=== PATIENT | female | born 1955 | race Caucasian/White ===

== ENCOUNTER 2018-01-07 10:49 | Emergency (ER) | payer OTHER ==
--- NOTE | 2018-01-07 11:13 | ED ---
HPI Chest Pain - HPI Summary HPI Summary: This patient is a 62 year old F presenting to [facility] with a chief complaint of sudden mid chest pain that radiated to right shoulder and neck, and jaw beginning last night around 22:00 while dancing. Pain at the time was 5/10 in severity. She reports current chest pressure and tightness also rated as a 5/10 in severity. She reports mild SOB this morning and "just doesn't feel right". Denies any nausea or lower extremity swelling and pain. She called her PCP this morning who instructed her to come to the ED. PMHx of TIAs, DM, and cardiac stents. Patient is currently on blood thinners including ASA; 81mg of ASA taken this morning. 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 - History of Current Complaint Chief Complaint: EDChestPainROMI Time Seen by Provider: 01/07/18 11:00 Hx Obtained From: Patient Onset/Duration: Started Hours Ago Time of Onset: 22:00 Timing: Constant Initial Severity: Severe Current Severity: Moderate Pain Intensity: 5 Pain Scale Used: 0-10 Numeric Chest Pain Location: Mid Sternal Chest Pain Radiates: Yes Chest Pain Radiates To:: Shoulder, Jaw, Neck Character: Pressure/Squeezing, Tightness Aggravating Factor(s): Nothing Alleviating Factor(s): Nothing Associated Signs and Symptoms: Positive: Chest Pain, Shortness of Breath. Negative: Calf Pain/Swelling - Allergy/Home Medications Allergies/Adverse Reactions: Allergies Allergy/AdvReac Type Severity Reaction Status Date / Time pepper (genus Capsicum) Allergy Hives Verified 01/07/18 13:19 Home Medications: Home Medications Bifidobacterium Infantis [Align] 4 mg PO DAILY 01/07/18 [History Confirmed 01/07] Glipizid/Metformin 2.5/500(NF) [Metaglip 2.5/500(NF)] 2 tab PO BID 01/07/18 [ History Confirmed 01/07/18] PMH/Surg Hx/FS Hx/Imm Hx Endocrine/Hematology History: Reports: Hx Diabetes Cardiovascular History: Reports: Hx Angina, Hx Coronary Artery Disease, Hx Hypercholesterolemia Denies: Hx Hypertension, Hx Pacemaker/ICD GI History: Reports: Other GI Disorders - ESOPHAGEAL STENT History: Reports: Other Problems/Disorders - UTI's Denies: Hx Renal Disease Sensory History: Reports: Hx Contacts or Glasses Denies: Hx Hearing Aid Opthamlomology History: Reports: Hx Contacts or Glasses Neurological History: Reports: Hx Transient Ischemic Attacks (TIA) Psychiatric History: Reports: Hx Depression Denies: Hx Panic Disorder - Cancer History Hx Chemotherapy: No Hx Radiation Therapy: No - Surgical History Surgery Procedure, Year, and Place: tonsilectomy 1958, tubal [id number], D+C, arthroscopic 1995 & 2001: stents to heart 07/20 Hx Anesthesia Reactions: No Infectious Disease History: No Infectious Disease History: Denies: Traveled Outside the [place] in Last 30 Days - Family History Known Family History: Positive: Hypertension - Social History Alcohol Use: Rare Substance Use Type: Reports: None Smoking Status (MU): Former Smoker Type: Cigarettes Length of Time of Smoking/Using Tobacco: 45 Have You Smoked in the Last Year: Yes Review of Systems Positive: Chest Pain Positive: Shortness Of Breath Negative: Nausea Negative: Myalgia, Edema All Other Systems Reviewed And Are Negative: Yes Physical Exam - Summary Physical Exam Summary: General: well-appearing, no pain distress Skin: warm, color reflects adequate perfusion, dry Head: normal Eyes: EOMI, KARINA ENT: normal Neck: supple, nontender Respiratory: CTA, breath sounds present Cardiovascular: RRR Abdomen: soft, nontender Bowel: present Musculoskeletal: normal, strength/ROM intact Neurological: sensory/motor intact, A&O x3 Psychological: affect/mood appropriate Triage Information Reviewed: Yes Vital Signs On Initial Exam: Initial Vitals Temp Pulse Resp BP Pulse Ox 97.6 F 68 16 184/63 98 01/07/18 10:52 01/07/18 10:52 01/07/18 10:52 01/07/18 10:52 01/07/18 10:52 Vital Signs Reviewed: Yes Diagnostics - Vital Signs Vital Signs Temp Pulse Resp BP Pulse Ox 01/07/18 10:52 97.6 F 68 16 184/63 98 - Laboratory Result Diagrams: 01/07/18 11:32 01/07/18 11:32 Lab Statement: Any lab studies that have been ordered have been reviewed, and results considered in the medical decision making process. - Radiology CXR Radiology Interpretation Completed By: Radiologist - Cardiomegaly without evidence for pulmonary edema. ED Physician has reviewed this report. - EKG 1119 Cardiac Rate: NL - 63 BPM EKG Rhythm: Sinus Rhythm Ectopy: None EKG Interpretation: flipped T in III Re-Evaluation - Re-Evaluation First Re-Evaluation Time: 12:22 Change: Improved Comment: Informed patient of results. Discussed admission. Patients chest pressure improved with Nitro. Chest Pain Course/Dx - Course Course Of Treatment: DISCUSSED RESULTS WITH THE PATIENT AND FAMILY. HOSPITALIST CONSULTED FOR ADMISSION. THE PATIENT DECLINED ADMISSION. I DISCUSSED THE RISKS OF NO BEING ADMITTED FOR CHEST PAIN; THE PATIENT SIGNED AMA FORM. WE DISCUSSED F/U WITH PMD AND RETURNING TO ED WITH ANY WORSENING OF HER CONDITION OR QUESTIONS OR CONCERNS. - Diagnoses Provider Diagnoses: Chest pain - Provider Notifications Discussed Care Of Patient With: Mara Lopez - hospitalist Time Discussed With Above Provider: 12:13 Instructed by Provider To: Admit As Inpatient Discharge - Sign-Out/Discharge Documenting (check all that apply): Patient Departure - Discharge Plan Condition: Guarded Disposition: AGAINST MEDICAL ADVICE Patient Education Materials: Chest Pain (ED) Referrals: Gus Van MD [Primary Care Provider] - Darby Blanco MD [Medical Doctor] - Additional Instructions: FOLLOW UP WITH YOUR PRIMARY CARE DOCTOR AND SUPERVISOR INTERNATIONAL RESERVATIONS. RETURN TO THE EMERGENCY DEPARTMENT FOR ANY WORSENING OF YOUR CONDITION OR QUESTIONS OR CONCERNS. - Billing Disposition and Condition Condition: GUARDED Disposition: Against Medical Advice - Attestation Statements Document Initiated by Arturoibe: Yes Documenting Scribe: Stacey Linares Provider For Whom Angiee is Documenting (Include Credential): Kalyan Bernardo MD Scribe Attestation: IStacey, scribed for Kalyan Bernardo MD on 01/07/18 at 1843. Scribe Documentation Reviewed: Yes Provider Attestation: The documentation as recorded by the Stacey hurt accurately reflects the service I personally performed and the decisions made by me, Kalyan Bernardo MD
[2018-01-07] MEDS ORDERED: Nitroglycerin TAB 0.4 MG* 0.4 MG TAB SL ONE ×2 (11:14→12:18)
[2018-01-07] MEDS ORDERED: Aspirin 81 mg CHEW TAB* 81 MG TAB.CHEW PO ONE (11:14)
[2018-01-07] MEDS ORDERED: NS 0.9% 1000 ML* 1,000 ML IV SCH (11:15)
[2018-01-07 11:39] LABS: ABS Basophils 0.1 10^3/ul (0-0.2); ABS Eosinophils 0 10^3/ul (0-0.6); ABS Lymphocytes 2.3 10^3/ul (1.0-4.8); ABS Monocytes 0.4 10^3/ul (0-0.8); ABS Neutrophils 4.8 10^3/ul (1.5-7.7); ABS Nucleated RBC 0 10^3/ul; Eosinophil % 0.1 % (0-6); Hematocrit 40 % (35-47); Hemoglobin 13.4 g/dl (12.0-16.0); Lymphocyte % 30.3 % (25-47); Mean Corpuscular HGB Conc 33 g/dl (31-36); Mean Corpuscular Hemoglobin 28 pg (27-31); Mean Corpuscular Volume 84 fL (80-97); Mean Platelet Volume 8.5 um3 (7.4-10.4); Nucleated Red Blood Cells % 0; Platelet Count 222 10^3/ul (150-450); Red Blood Count 4.81 10^6/ul (4.00-5.40); Red Cell Distribution Width 14 % (10.5-15); White Blood Count 7.6 10^3/ul (3.5-10.8)
[2018-01-07 11:48] LABS: INR 0.94 (0.77-1.02)
--- NOTE | 2018-01-07 11:51 | RAD ---
Indication: Chest pressure. Coronary artery disease with prior stent. Comparison: January 08, 2014 Technique: Upright AP 1130 hours Report: No focal pulmonary lesion, compelling alveolar consolidation, pleural effusion, pneumothorax. Cardiomegaly. Unremarkable central pulmonary vasculature and mediastinal contours. IMPRESSION: #. Cardiomegaly without evidence for pulmonary edema.
[2018-01-07 11:58] LABS: EGFR Non-African American 79.5 (>60)
[2018-01-07] MEDS ORDERED: Magnesium Sulfate 2 GM IV* 2 GM/50 ML BAG IVPB ONE (12:16)
[2018-01-07] MEDS: NS 0.9% 1000 ML* 2,000 ML IV ONE (12:28)
[2018-01-07 13:54] VITALS: BP 126/92
[2018-01-07] MEDS ORDERED: Heparin VIAL(*) 5000 UNITS/ML VIAL (FIVE THOUSAND) SUBCUT SCH (14:00)
--- NOTE | 2018-01-07 15:01 | PN ---
Hospitalist Progress Note Date of Service: 01/07/18 Asked by ED provider to eval Patient for possible admission for chest pain rule out ACS. Upon entering room to see patient, Pt states that she doesn't want to stay and would like to leave. She states that her chest pain has resolved and she has an appointment with cardiology later this month. ED provider notified of Pt's request to leave AMA at this time.
== END 2018-01-07 14:16 | disposition left against medical advice (07) ==
LOC: ED 10:49 → MEDTELE 13:13 → UNDOADMOB 13:13 → ED 14:16
DX: R07.89 Other chest pain (principal); I25.10 Atherosclerotic heart disease of native coronary artery without angina pectoris; E11.9 Type 2 diabetes mellitus without complications; Z53.21 Procedure and treatment not carried out due to patient leaving prior to being seen by health care provider; Z95.5 Presence of coronary angioplasty implant and graft; Z87.891 Personal history of nicotine dependence; Z86.73 Personal history of transient ischemic attack (TIA), and cerebral infarction without residual deficits; Z79.82 Long term (current) use of aspirin; Z79.84 Long term (current) use of oral hypoglycemic drugs
CPT/HCPCS: 36415; 71045; 80053; 82550; 82553; 83605; 83690; 83735; 83880; 84443; 84484; 85025; 85379; 85610; 85730; 86140; 93005; 96361; 96365; 99283; A9270-GY; J3475

== ENCOUNTER → 2018-03-02 08:17 | Day surgery (SDC) | payer OTHER ==
[~2018-03-02 08:17] MED LIST: Heparin 2 UNITS/ML IVPREMIX* 2,000 ML IV ONE; Heparin(*) 1000 UNIT/ML 10 ML VIAL CATH LAB IV ONE; Iohexol 350 (CONTRAST) 200 ML MDV IV ONE; Lidocaine 1% INJ* 10 MG/ML 30 ML SDV ONE; Midazolam* 1 MG/ML 10 ML VIAL (10 MG) ONE; NS 0.9% 1000 ML* 1,000 ML IV SCH; VERAPAMIL 2.5 MG/ML 2 ML VIAL ** 5 mg/2 ml ONE; fentaNYL* 50 MCG/ML 2 ML VIAL (100 MCG VIAL) ONE; nitroGLYCERIN DRIP* 25,000 MCG/250 ML BTL ONE
[2018-03-02 13:48] VITALS: BP 136/81
--- NOTE | 2018-03-03 02:28 | CATH ---
CC: Gus Van MD; Darby Blanco MD, [facility] * CARDIAC CATHETERIZATION REPORT: DATE OF PROCEDURE: 03/02/18 - [facility] CATH INDICATION FOR PROCEDURE: Asked by Dr. Blanco to perform diagnostic coronary arteriography in light of abnormal nuclear stress test with the presence of increased t.i.d. with a history of prior stents in the LAD and the circumflex and recurrent episodes of chest heaviness with radiation to the neck and possible jaw. PROCEDURE: Coronary arteriography, left heart catheterization, left ventriculography. CONSENT: The patient was interviewed and examined in the holding area where the risks and benefits were explained. She understood them and wished to proceed. PRECARDIAC CATHETERIZATION LABORATORY RESULTS: Hemoglobin and hematocrit of 13.5 and 40 with a platelet count of 205,000. BUN and creatinine of 11.7. Sodium 139, potassium 4.6, chloride 103, bicarb 28, INR 0.9. EQUIPMENT UTILIZED: 1. Right radial artery sheath - 6-Samoan Glidesheath. 2. Diagnostic coronary catheter, a 5-Samoan TIG 4-curve catheter. 3. Diagnostic guidewire a 260 length Grande-curved Guidewire. 4. Exchange length Wholey exchange wire. 5. Left heart catheterization catheter, a 5-Samoan PIG Performa radial catheter. CLOSURE DEVICE UTILIZED: A Vasc-Band radial artery band. MEDICATIONS GIVEN DURING THE PROCEDURE: Included 1 mg of Versed. The radial artery cocktail included 3000 units of heparin, 300 mcg of nitroglycerin and 3 mg of verapamil. APPROACH: The right radial artery was assessed in the holding area by ultrasound and found to be acceptable as an approach. DESCRIPTION OF PROCEDURE: The patient was brought was to the cardiovascular laboratory where a formal time-out was performed. The patient was prepped and draped in a sterile fashion and under ultrasound guidance, the right radial artery was cannulated and sheath was placed. Coronary arteriography was performed utilizing the 5-Samoan TIG 4-curved catheter. Following this, central aortic pressure was recorded using the PIG Performa radial catheter advanced to the ascending aorta. The catheter was then passed across the aortic valve into the left ventricle where left ventricular pressure was recorded. Left ventriculography was then performed utilizing a total of 24 cc of Omnipaque dye at a rate of 12 cc per second. The catheter was then pulled back across the aortic valve to recheck gradient. At the end of the case, the catheter was removed and the sheath was removed and hemostasis was obtained with a Vasc-Band. The reverse Barbeau was christina Tillman. RESULTS: HEMODYNAMIC DATA: Left heart catheterization - central aortic pressure was recorded at 126/70 with a mean of 93, left ventricular pressure 127 over left ventricular end- diastolic pressure of 14. CORONARY ARTERIOGRAPHY: A. Right coronary artery - a dominant artery supplying the PDA and 3 thin posterior left ventricular branches. There were mild luminal irregularities, but no significant obstruction seen throughout the course of the vessel. Of note, the PDA supplied to the mid inferior wall. B. Left coronary artery: 1. Left main - widely patent. 2. Left anterior descending artery - supply a first small caliber diagonal branch followed by a moderate size mid diagonal branch. Continued on to the distal area and wrapped around the apex on to the distal inferior wall. The area of prior stent placement in the mid LAD showed no evidence of significant in-stent restenosis. There were mild luminal irregularities in the mid portion and a 45% lesion seen in the distal LAD just prior to reaching the apical region. 3. Circumflex artery - a nondominant vessel supplying a thin first and second obtuse marginal branch with a slightly larger but still thin third obtuse marginal branch ending in a low-lying moderate size superior branch of bifurcating obtuse marginal branch. The inferior branch was somewhat small in caliber. The prior stented area in the mid to distal circumflex was widely patent with no evidence of in-stent restenosis. LEFT VENTRICULOGRAPHY: Performed in EUGENE projection revealed symmetrical contraction left ventricle with overall ejection fraction approximately 55% to 60%. No significant mitral regurgitation was identified. OVERALL ASSESSMENT: No significant stenotic coronary artery disease with patent LAD and circumflex stents as described above and normal left ventricular systolic function. This information will be shared with Dr. Blanco, the patient's primary pickling machine operator, for further evaluation and ongoing cardiac management. The patient will continue on her current medications. [id number]/[facility] #: [id number] [facility] CENTERDawna
== END | disposition home or self-care (01) ==
LOC: CHICATH 08:17
PROVIDERS: ATTEND Internal Medicine Cardiovascular Disease
DX: I25.10 Atherosclerotic heart disease of native coronary artery without angina pectoris (principal); R07.9 Chest pain, unspecified; R68.84 Jaw pain; M79.602 Pain in left arm; M79.601 Pain in right arm; R06.02 Shortness of breath; Z98.61 Coronary angioplasty status; Z79.01 Long term (current) use of anticoagulants; I34.8 Other nonrheumatic mitral valve disorders; E11.9 Type 2 diabetes mellitus without complications; I10 Essential (primary) hypertension; Z87.891 Personal history of nicotine dependence; E66.9 Obesity, unspecified; E78.5 Hyperlipidemia, unspecified
CPT/HCPCS: 76937; 93458; J1644; J2250; J3010

== ENCOUNTER 2018-10-22 12:53 | Emergency (ER) | payer OTHER ==
[2018-10-22 13:01] VITALS: BP 141/74
--- NOTE | 2018-10-22 13:23 | UC ---
Lower Extremity/Ankle HPI - HPI Summary HPI Summary: pt stepped down off of stair at 830p last evening and felt a "pop" in L calf, very painful, is not able to ambulate without help d/t pain with weight bearing. calf is swollen today, painful despite ice and elevation pt is on plavix since 2012 for cardiac stents. also thinks her L foot feels colder than R today. - History of Current Complaint Chief Complaint: UCLowerExtremity Stated Complaint: LEG INJURY Time Seen by Provider: 10/22/18 12:58 Hx Obtained From: Patient Onset/Duration: Sudden Onset Severity Initially: Moderate Severity Currently: Mild - at rest, increased with movement Pain Intensity: 4 Aggravating Factor(s): Standing, Ambulation Alleviating Factor(s): Rest, Elevation Able to Bear Weight: Yes - with pain and limp - Allergies/Home Medications Allergies/Adverse Reactions: Allergies Allergy/AdvReac Type Severity Reaction Status Date / Time pepper (genus Capsicum) Allergy Hives Verified 10/22/18 13:01 PMH/Surg Hx/FS Hx/Imm Hx Endocrine History: Diabetes Cardiovascular History: Cardiac Disease - Surgical History Surgical History: Yes Surgery Procedure, Year, and Place: tonsilectomy 1958, tubal [id number], D+C, arthroscopic 1995 & 2001: stents to heart 07/20 - Family History Known Family History: Positive: Hypertension - Social History Occupation: Employed Full-time Lives: With Family Alcohol Use: Rare Substance Use Type: None Smoking Status (MU): Former Smoker Type: Cigarettes Amount Used/How Often: 3 pck/day Length of Time of Smoking/Using Tobacco: 45 Have You Smoked in the Last Year: Yes When Did the Patient Quit Smoking/Using Tobacco: 01/15/13 Household Exposure Type: Cigarettes - Immunization History Most Recent Influenza Vaccination: never Most Recent Tetanus Shot: within 10 years Most Recent Pneumonia Vaccination: never Review of Systems All Other Systems Reviewed And Are Negative: Yes Constitutional: Positive: Negative Skin: Negative: Bruising Respiratory: Positive: Negative. Negative: Shortness Of Breath, Cough Cardiovascular: Positive: Negative. Negative: Chest Pain Musculoskeletal: Positive: Decreased ROM, Edema - L lower ext Neurological: Positive: Other - L toes feel colder than R Psychological: Positive: Negative Is Patient Immunocompromised?: No Physical Exam Triage Information Reviewed: Yes Appearance: Well-Appearing, No Pain Distress, Obese Vital Signs: Initial Vital Signs Temp 97.3 F 10/22/18 12:56 Pulse 91 10/22/18 12:56 Resp 18 10/22/18 12:56 BP 141/74 10/22/18 12:56 Pulse Ox 98 10/22/18 12:56 Vital Signs Reviewed: Yes Respiratory Exam: Normal Respiratory: Positive: Lungs clear Cardiovascular Exam: Normal Cardiovascular: Positive: RRR, Pulses Normal - although L pedal pulse weaker than R, Brisk Capillary Refill - L distal toes, L toes cooler on palpation compared to R Musculoskeletal: Positive: Strength Limited @ - L lower extremity: is able to dorsiflex L foot but stops at 50% d/t pain, also has increased pain with passive ROM. calf swollen and more tense than R., ROM Limited @ Neurological Exam: Normal Neurological: Positive: Alert Psychological Exam: Normal Skin Exam: Normal Lower Extremity Course/Dx - Differential Dx/Diagnosis Differential Diagnosis/HQI/PQRI: Compartment Syndrome, Contusion, Sprain, Strain Provider Diagnosis: Leg pain, left Discharge - Sign-Out/Discharge Documenting (check all that apply): Patient Departure All imaging exams completed and their final reports reviewed: No Studies - Discharge Plan Condition: Stable Disposition: HOME-RECOMMEND TO ED Referrals: Gus Van MD [Primary Care Provider] - Additional Instructions: Even though you refuse ambulance transport, Please go directly to [facility] ER for further evaluation of L calf pain and swelling As we discussed, I am concerned that you may have compartment syndrome or bleeding in your calf that may interfere with blood circulation to your leg and foot. - Billing Disposition and Condition Condition: STABLE Disposition: Home-Recommend to ED
== END 2018-10-22 13:33 | disposition home health service (06) ==
LOC: UCEAST 12:53
DX: M79.662 Pain in left lower leg (principal); E11.9 Type 2 diabetes mellitus without complications; Z87.891 Personal history of nicotine dependence
CPT/HCPCS: 99212; G0463

== ENCOUNTER 2018-10-22 14:16 | Emergency (ER) | payer OTHER ==
[2018-10-22 16:47] VITALS: BP 159/98
--- NOTE | 2018-10-22 16:50 | ED ---
Lower Extremity - HPI Summary HPI Summary: Patient is a 63-year-old female visiting to the ED from urgent care. Patient states she was attempting to take a step down from a step last evening when she felt a "snapping" to the left calf muscle. This occurred at around 8:30 last evening. Patient remains ambulatory, but with pain. Symptoms aren't worse with dorsiflexion and better with plantar flexion. Denies any pain to the Achilles. Denies any pain to the foot or to the knee. No history of DVT. No erythema to the area, however is endorsing swelling and a small palpable lump. Currently takes Plavix for cardiac stents. Has been taking ibuprofen without much relief of pain. Pain is currently rated an 8/10, worse with ambulation and better with rest. - History of Current Complaint Chief Complaint: EDExtremityLower Stated Complaint: POSSIBLE COMPARTMENT SYNDROM COMMING FROM CC Time Seen by Provider: 10/22/18 15:12 Hx Obtained From: Patient Mechanism Of Injury: Blunt Trauma Onset of Pain: Hours Onset/Duration: Hours Severity Initially: Moderate Severity Currently: Moderate Pain Intensity: 4 Pain Scale Used: 0-10 Numeric Timing: Constant Location: Is Discrete @ - left calf pain Character Of Pain: Aching Associated Signs And Symptoms: Positive: Swelling. Negative: Redness, Bruising , Fever, Weakness Aggravating Factor(s): Standing, Ambulation, Movement, Weight Bearing Alleviating Factor(s): Rest, Elevation Able to Bear Weight: Yes - Allergies/Home Medications Allergies/Adverse Reactions: Allergies Allergy/AdvReac Type Severity Reaction Status Date / Time pepper (genus Capsicum) Allergy Hives Verified 10/22/18 14:30 PMH/Surg Hx/FS Hx/Imm Hx Previously Healthy: Yes Endocrine/Hematology History: Reports: Hx Diabetes - type 2 dm Cardiovascular History: Reports: Hx Angina, Hx Coronary Artery Disease - stent 2012, Hx Hypercholesterolemia Denies: Hx Hypertension, Hx Myocardial Infarction, Hx Pacemaker/ICD, Hx Valvular Heart Disease Respiratory History: Denies: Hx Asthma, Hx Chronic Obstructive Pulmonary Disease (COPD) GI History: Reports: Other GI Disorders - ESOPHAGEAL STENT History: Reports: Other Problems/Disorders - UTI's Denies: Hx Renal Disease Sensory History: Reports: Hx Contacts or Glasses Denies: Hx Hearing Aid Opthamlomology History: Reports: Hx Contacts or Glasses Neurological History: Reports: Hx Transient Ischemic Attacks (TIA) Psychiatric History: Reports: Hx Depression Denies: Hx Panic Disorder - Cancer History Hx Chemotherapy: No Hx Radiation Therapy: No - Surgical History Surgery Procedure, Year, and Place: tonsilectomy 1958, tubal [id number], D+C, arthroscopic 1995 & 2001: stents to heart 07/20 Hx Anesthesia Reactions: No - Immunization History Hx Pertussis Vaccination: No Immunizations Up to Date: Yes Infectious Disease History: No Infectious Disease History: Denies: Traveled Outside the [place] in Last 30 Days - Family History Known Family History: Positive: Hypertension - Social History Occupation: Employed Full-time Lives: With Family Alcohol Use: Rare Hx Substance Use: No Substance Use Type: Reports: None Hx Tobacco Use: Yes Smoking Status (MU): Former Smoker Type: Cigarettes Amount Used/How Often: 3 pck/day Length of Time of Smoking/Using Tobacco: 45 Have You Smoked in the Last Year: Yes Review of Systems Constitutional: Negative Negative: Fever, Chills, Fatigue, Skin Diaphoresis Negative: Palpitations, Chest Pain Negative: Shortness Of Breath, Cough Genitourinary: Negative Positive: no symptoms reported, see HPI Positive: Myalgia - left calf pain Positive: Other - swelling and small amount of erythema to the area. Negative: Rash, Bruising Neurological: Negative All Other Systems Reviewed And Are Negative: Yes Physical Exam Triage Information Reviewed: Yes Vital Signs On Initial Exam: Initial Vitals Temp Pulse Resp BP Pulse Ox 97.0 F 81 14 127/78 97 10/22/18 14:25 10/22/18 14:25 10/22/18 14:25 10/22/18 14:25 10/22/18 14:25 Vital Signs Reviewed: Yes Appearance: Positive: Well-Appearing, Well-Nourished Skin: Positive: Skin Color Reflects Adequate Perfusion, Other - small amount of erythema to the area Eyes: Positive: EOMI, KARINA Neck: Positive: No Lymphadenopathy Respiratory/Lung Sounds: Positive: Clear to Auscultation Cardiovascular: Positive: Pulses are Symmetrical in both Upper and Lower Extremities, Leg Edema Left. Negative: Leg Edema Right Musculoskeletal: Positive: Strength/ROM Intact - pain with dorsiflexion, Edema Left. Negative: Kole Sign Left, Kole Sign Right, Edema Right Neurological: Positive: Sensory/Motor Intact Psychiatric: Positive: Affect/Mood Appropriate Diagnostics - Vital Signs Vital Signs Temp Pulse Resp BP Pulse Ox 10/22/18 14:25 97.0 F 81 14 127/78 97 - Laboratory Lab Statement: Any lab studies that have been ordered have been reviewed, and results considered in the medical decision making process. Lower Extremity Course/Dx - Course Course Of Treatment: Patient's evaluated for left sided calf pain after stepping down a step last evening at around 8:30. She was sent [facility] to assess for compartment syndrome. On physical examination, there is tenderness to the left calf with swelling, small palpable mass to the medial/mid calf. Concern for a gastrocnemius, plantaris or soleus tear. Ultrasound obtained which shows a hypoechoic lesion within the musculature of the left calf, likely hematoma given the history of trauma. Recommend follow up until resolution. Achilles tendon and insertion intact. No evidence of ACS on exam. No paresthesias, no obvious tense compartment, patient has good blood flow and no pallor is noted. No diminished sensation or paralysis. No evidence of muscle weakness and patient remains able to plantarflex and dorsiflex. Pain does not seem out of proportion to the apparent injury. Discussed findings with the patient. She will follow-up with a repeat ultrasound in 1-2 weeks to assure resolution and understands to return to the ED for any worsening or changing symptoms. She is encouraged not to take NSAIDs , aspirin or other blood thinners. She will continue to take her Plavix. Heat and ice intermittently 2-3 days and compression sleeve. - Diagnoses Provider Diagnoses: Muscle tear, Hematoma Discharge - Sign-Out/Discharge Documenting (check all that apply): Patient Departure Patient Received Moderate/Deep Sedation with Procedure: No - Discharge Plan Condition: Stable Disposition: HOME Patient Education Materials: Hematoma (ED) Referrals: Gus Van MD [Primary Care Provider] - Additional Instructions: You likely have a small tear to the calf muscle as there is a hematoma (small collection of blood) in the area This is consistent with a trauma Heat to the area will promote blood flow Ice can be used for swelling You may wrap the area only if this improves your symptoms (pain) Do not take additional ibuprofen or other NSAIDS I suggest a repeat ultrasound for resolution in 1-2 weeks Your symptoms should continue to improve and you may continue to ambulate on the area However, if you continue to be in discomfort, try to rest If you develop any discolorations or decreased feeling in the foot, he must return to the ED immediately - Billing Disposition and Condition Condition: STABLE Disposition: Home
== END 2018-10-22 16:47 | disposition home or self-care (01) ==
LOC: ED 14:16
DX: S86.912A Strain of unspecified muscle(s) and tendon(s) at lower leg level, left leg, initial encounter (principal); W10.9XXA Fall (on) (from) unspecified stairs and steps, initial encounter; E11.9 Type 2 diabetes mellitus without complications; I25.10 Atherosclerotic heart disease of native coronary artery without angina pectoris; Z87.891 Personal history of nicotine dependence; Z79.02 Long term (current) use of antithrombotics/antiplatelets
CPT/HCPCS: 99282